=== PATIENT | male | born 1960 | race Caucasian/White ===

== ENCOUNTER → 2017-11-03 12:18 | Outpatient (CLI) | payer BC, SELFPAY ==
--- NOTE | 2017-11-03 12:21 | RAD_ITS ---
STUDY: X-RAY CHEST REASON FOR EXAM: Male, 57 years old. Cough. Chest and head congestion. TECHNIQUE: PA and lateral views of the chest. COMPARISON: Comparison is made with prior study dated October 22, 2012. FINDINGS: Hyperinflation. The lungs are clear. There is no demonstrated pleural abnormality. Normal size heart. Normal mediastinum and kishan. Normal visualized pulmonary arteries. Normal visualized aortic arch and descending thoracic aorta. There are degenerative changes of the visualized thoracic spine. Normal visualized ribs, clavicles, and shoulders. There is no demonstrated abnormality of the visualized soft tissue structures of the upper abdomen. RAD/Chest PA and Lateral IMPRESSION: Hyperinflation. The lungs are clear. Electronically Signed: Travis Gannon MD at 15:38 EST Tel [phone], Service support ,
[2017-11-03 14:22] LABS: Partial Thromboplast Time 31.7 Seconds (24.1-36.2)
[2017-11-03 14:39] LABS: Absolute Lymphocyte Count 0.73 X10^3/ul (0.83-4.51); Absolute Neutrophil Count 3.6 X10^3/uL (2.0-7.7); Basophil# 0.02 X10^3/uL; Basophil% 0.4 % (0-1); Eosinophil# 0.14 X10^3/uL; Eosinophils% 2.7 % (0-5); Hematocrit 43.1 % (40-54); Hemoglobin 14.7 g/dl (13.0-16.5); Lymphocyte # 0.73 X10^3/ul (4.0); Mean Corp Hgb Conc 34.1 g/gl (32-36); Monocyte# 0.76 X10^3/uL; Monocyte% 14.6 % (0-10); Neutrophil # 3.56 X10^3/uL (2.7-7.7); Neutrophil % 68.1 % (47-70); POSITIVE COUNT NO; POSITIVE DIFFERENTIAL NO; POSITIVE MORPHOLOGY NO; Platelet Count 173 K/mm3 (150-450); RBC Distribution Width CV 13.2 % (11.6-14.6); RBC Distribution Width SD 42.3 fl (35.1-43.9); White Blood Count 5.2 K/mm3 (4.4-11.0)
[2017-11-03 14:48] LABS: Anion Gap 8 (5-15); BUN 19 mg/dL (7-18); BUN/Creat Ratio 12.9 RATIO (10-20); Calcium,Total 9.2 mg/dL (8.5-10.1); Chloride 99 mmol/L (98-107); Creatinine, Serum 1.47 mg/dL (0.70-1.30); EST Glomerular Filtration Rate 52 mL/min (>60); Est Glom Filt Rate - Afr Amer 63 mL/min (>60); Glucose 89 mg/dL (74-106); Potassium 3.8 mmol/L (3.5-5.1); Sodium Level 136 mmol/L (136-145)
== END ==
PROVIDERS: Family Provider Family Medicine; PCP Family Medicine; Visit Provider Family Medicine
DX: Z01.818 Encounter for other preprocedural examination (principal); R05 Cough
CPT/HCPCS: 36415; 71046; 80048; 85025; 85610; 85730

== ENCOUNTER → 2018-02-03 08:13 | Outpatient (CLI) | payer BC, SELFPAY ==
--- NOTE | 2018-02-03 08:18 | VDLE_ITS ---
Reason For Study: leg swelling RIGHT GSV is normal. CFV is compressible, spontaneous, phasic, competent and demonstrates normal augmentation. FV is compressible, spontaneous, phasic, competent and demonstrates normal augmentation. POP V is compressible, spontaneous, phasic, competent and demonstrates normal augmentation. T/P Trunk is compressible. PTV is compressible. RT PerV is compressible. Procedure Exam performed in department. A preliminary report was called and/or faxed to Dr Winter. Interpretation Summary Deep veins of the right lower extremity are patent and compressible segmentally. There is no evidence of right lower extremity deep vein thrombosis. Valvular competence appears intact within the proximal deep venous system on the right . The right greater saphenous vein appears patent and compressible segmentally. Ordering Physician: Brian Winter Referring Physician: Dallas Corado Performed By: Mag Sabillon, SUNNY, RVT
== END ==
PROVIDERS: Family Provider Family Medicine; PCP Family Medicine; Visit Provider Family Medicine
DX: M79.89 Other specified soft tissue disorders (principal)
CPT/HCPCS: 93971

== ENCOUNTER → 2018-09-22 07:48 | Outpatient (CLI) | payer OTHER, SELFPAY ==
[2017-11-16 09:56] VITALS: BMI 29.9
[2018-09-22 10:42] LABS: ALB/GLOB Ratio 1.4 RATIO (0.9-2.4); AST(SGOT) 25 U/L (15-37); Alanine Aminotransfer ALT/SGPT 42 U/L (16-61); Alkaline Phosphatase 45 U/L (45-117); Anion Gap 10 (5-15); BUN 18 mg/dL (7-18); BUN/Creat Ratio 15.1 RATIO (10-20); Calcium,Total 8.7 mg/dL (8.5-10.1); Chloride 105 mmol/L (98-107); Cholesterol 220 mg/dL (200); Creatinine, Serum 1.19 mg/dL (0.70-1.30); EST Glomerular Filtration Rate 66 mL/min (>60); Est Glom Filt Rate - Afr Amer 80 mL/min (>60); Globulin 2.8 g/dL (2.2-4.2); Glucose 93 mg/dL (74-106); High Density Lipoprotein 31 mg/dL; PSA,Total - Annual Screen 0.55 ng/mL (0.00-4.00); Potassium 4.1 mmol/L (3.5-5.1); Protein, Total 6.8 g/dL (6.4-8.2); Sodium Level 140 mmol/L (136-145); Triglycerides 291 mg/dL; Very Low Density Lipoprotein 58 mg/dL (5-40)
== END ==
PROVIDERS: Family Provider Family Medicine; PCP Family Medicine; Referring Provider Family Medicine; Visit Provider Family Medicine
DX: E78.5 Hyperlipidemia, unspecified (principal); K21.9 Gastro-esophageal reflux disease without esophagitis; N40.1 Benign prostatic hyperplasia with lower urinary tract symptoms; N13.8 Other obstructive and reflux uropathy; Z12.5 Encounter for screening for malignant neoplasm of prostate
CPT/HCPCS: 36415; 80053; 80061; 84153; G0103

== ENCOUNTER → 2018-12-15 13:03 | Outpatient (CLI) | payer OTHER, SELFPAY ==
--- NOTE | 2018-12-15 13:11 | US_ITS ---
STUDY: SCROTUM ULTRASOUND REASON FOR EXAM: Male, 58 years old. Blood in semen. TECHNIQUE: Ultrasound evaluation of the scrotum was performed with color Doppler and static york-scale imaging. COMPARISON: None. FINDINGS: RIGHT TESTICLE INTRATESTICULAR: There is a normal size of the right testicle. The right testicle measures 4.2 x 3.2 x 2.2 cm. There is a homogenous echotexture. There is normal arterial and normal venous vascularity. There is no demonstrated right testicular mass or cyst. EXTRATESTICULAR: The epididymis is normal in size. The epididymis head measures 1.4 x 1.4 x 0.9 cm. There is normal vascularity of the epididymis. There is no demonstrated epididymal cystic structure. There is a small hydrocele. There is no demonstrated varicocele. There is no demonstrated extratesticular mass or cyst. Right scrotal wall thickening. LEFT TESTICLE INTRATESTICULAR: There is a normal size of the left testicle. The left testicle measures 4.5 x 2.8 x 1.9 cm. There is a homogenous echotexture. There is normal arterial and normal venous vascularity. There is no demonstrated left testicular mass or cyst. EXTRATESTICULAR: The epididymis is normal in size. The epididymis head measures 1.3 x 1.3 x 1.0 cm. There is normal vascularity of the epididymis. There is no demonstrated epididymal cystic structure. There is a small hydrocele. There is no demonstrated varicocele. There is no demonstrated extratesticular mass or cyst. Right scrotal wall thickening. US/Testicular with Arterial Flow IMPRESSION: Normal bilateral testicles. Small bilateral hydroceles. Bilateral scrotal wall thickening. Electronically Signed: Kirby Seymour MD at 7:56 EDT , Service support ,
== END ==
PROVIDERS: Family Provider Family Medicine; PCP Family Medicine; Referring Provider Family Medicine; Visit Provider Family Medicine
DX: R36.1 Hematospermia (principal)
CPT/HCPCS: 76870; 93976

== ENCOUNTER → 2019-04-04 | Outpatient (CLI) | payer OTHER, SELFPAY ==
[2017-11-16 09:56] VITALS: BMI 29.9
--- NOTE | 2019-04-04 12:03 | RAD_ITS ---
STUDY: X-RAY - PELVIS AND BILATERAL HIPS REASON FOR EXAM: Male, 58 years old. Pain, decreased range of motion TECHNIQUE: AP view of the pelvis.? 2 views of the right hip, and 2 views of the left hip were obtained. COMPARISON: None. FINDINGS: There is a non-specific bowel gas pattern. Normal visualized soft tissue structures. Normal bilateral iliac wings, sacroiliac joints and visualized sacrum. Normal bilateral superior and inferior pubic rami. Normal pubic symphysis. Normal bilateral ischial tuberosities. Normal visualized right femoral head. Normal right acetabulum. Normal right hip joint. Normal visualized left femoral head. Normal left acetabulum. Normal left hip joint. RAD/Hips B/L min 2 views w/ Pelvis IMPRESSION: Normal x-ray examination of the pelvis and bilateral hips. Electronically Signed: Justice Purdy MD at 12:36 EDT , Service support ,
--- NOTE | 2019-04-04 12:03 | RAD_ITS ---
STUDY: X-RAY - LUMBAR SPINE REASON FOR EXAM: Male, 58 years old. Low back pain TECHNIQUE: 5 view(s) of the lumbar spine were obtained. COMPARISON: None FINDINGS: Normal lumbar lordosis. There is no substantial scoliosis. There is a normal alignment of the vertebrae. There is multilevel endplate spondylosis of the lumbar vertebrae. There is multi-level degenerative disc disease with multi-level disc space narrowing. There is no demonstrated fracture. The soft tissue structures are unremarkable. RAD/L/S Spine Min 4 Views IMPRESSION: Degenerative changes of the spine, as detailed above. Electronically Signed: Justice Purdy MD at 12:32 EDT , Service support ,
== END | disposition home or self-care (01) ==
LOC: MTRAD 12:02
PROVIDERS: Family Provider Family Medicine; PCP Family Medicine; Referring Provider Family Medicine; Visit Provider Family Medicine
DX: M54.40 Lumbago with sciatica, unspecified side (principal); M25.551 Pain in right hip
CPT/HCPCS: 72110; 73521

== ENCOUNTER 2019-05-04 01:02 | Emergency (ER) | payer OTHER, SELFPAY ==
[2019-05-04 01:04] VITALS: BP 155/117; PULSE 83; RESP 17; TEMP 36.7; O2SAT 96; BMI 29.8
--- NOTE | 2019-05-04 01:17 | ED.VIS.GEN ---
History of Present Illness Chief Complaint: Back Informant: Patient Narrative: She presents with back pain. For the last 3 weeks he has had radicular symptoms originating in his left lower back. He is in physical therapy. He is tried water therapy and massage. He is seen his family doctor and had an x-ray that showed DJD. 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 He has never seen a back specialist. Recently he was placed on hydrocodone and gabapentin. His pain has waxed and waned. Tonight it got worse. He is unsure what caused the change. He was on prednisone approximately a week ago for a week and it did help. Denies any loss of bowel or bladder function. Denies any emergent warning signs including saddle paresthesia fevers or chills - Past Medical History (1) Abnormal electrocardiogram Status: Acute (2) Dyspnea Status: Acute (3) Preop cardiovascular exam Status: Acute (4) Bradycardia Status: Chronic (5) Chest tightness Status: Chronic (6) Obesity Status: Chronic Past Medical History - Allergies and Home Meds Allergies/Adverse Reactions: Allergies lansoprazole [From Prevacid] Adverse Reaction (Mild, Verified 05/04/19 01:03) Unknown ineffective erythromycin base [From Erythrocin] Adverse Reaction (Verified 05/04/19 01:03) Unknown hydrocodone Adverse Reaction (Verified 05/04/19 01:03) Rash latex Adverse Reaction (Verified 05/04/19 01:03) rash Primary Care Physician: oTmy Corado MD [Primary Care Provider] - Prior records reviewed: Yes Past Medical History: - - See problem list Surgical History: - - Reviewed Smoking Status: Never smoker Alcohol: None Drugs: None Review of Systems General: Denies: Chills, Fever, Sweats Eyes: Denies: Visual changes - bilaterally, Diplopia ENT: Denies: Rhinorrhea, Sore throat Cardiovascular: Denies: Chest pain, Palpitations Respiratory: Denies: Dyspnea, Cough, Dyspnea on exertion Gastrointestinal: Denies: Abdominal pain, Nausea, Vomiting, Diarrhea, Melena, Hematochezia Genitourinary: Denies: Dysuria, Hematuria, Frequency Musculoskeletal: Reports: Back pain, Extremity Pain Skin: Denies: Rash, Wounds Neurological: Denies: Headache, Weakness, Numbness Physical Exam Vital Signs/Narrative: Vital Signs Temp Pulse Resp BP Pulse Ox 08/23/19 01:04 98.1 F 83 17 155/117 H 96 General: Well nourished, Well developed, No Acute Distress Head: Normocephalic, Atraumatic Eyes: Perrl, EOMI ENT: Moist mucous membranes, No rhinorrhea Neck: Supple, Nontender Cardiovascular: Regular rate, Regular rhythm, No murmurs Respiratory: No distress, CTA bilaterally, Chest nontender Abdomen: Soft, Nontender, Nondistended, Normal bowel sounds Back: Normal Inspection, - - No spinal tenderness on the left. Decreased range of motion of the spine secondary to pain. Negative for: Nontender Extremities: Nontender, No edema Skin: Normal color, No rash Neurological: Alert, Oriented x3, Cranial nerves II-XII grossly intact, Normal Strength, Normal Sensation Psychological: Normal affect, Normal Mood Diagnostic/Tx/Re-eval - Medical Decision Making At this time I feel the patient has a radiculopathy likely from a pinched nerve in his back. I do not feel he has an emergent cause of his symptoms. I do not think he has a cauda equina or epidural abscess or hematoma or tumor. I do not feel he needs an emergent MRI. Given injection of Dilaudid, Kenalog Toradol and Benadryl. The Benadryl to prevent the rash that he has gotten with hydrocodone in the past she did require a total of 2-1/2 mg of Dilaudid to get his pain under control. He has pain medicine at home. He will get a delayed effect of the Kenalog. He will follow-up as an outpatient. ED Disposition - Plan for ED Patient: Disposition: Psychiatric Hospital or Unit Diagnosis: Lumbar radiculopathy, acute Instructions: BACK PAIN (Acute or Chronic) Referrals: Tomy Corado MD [Primary Care Provider] -
[2019-05-04] MEDS: DiphenhydrAMINE 50 MG/ML Syringe 25 MG IM (01:33)
[2019-05-04] MEDS: HYDROmorphone 1 MG/ML Syringe IM ×2 (01:33→02:14)
[2019-05-04] MEDS: Triamcinolone Acetonide 40 MG/ML Vial 80 MG IM (01:33)
[2019-05-04] MEDS: Ketorolac 15 MG/ML Vial IM (01:33)
[2019-05-04 02:07] VITALS: BP 147/87; PULSE 68; RESP 18; O2SAT 95
[2019-05-04 03:17] VITALS: BP 153/102; PULSE 79; RESP 18; O2SAT 95
[2019-05-04] MEDS: HYDROmorphone 0.5 MG/0.5 ML SYRINGE IM (03:20)
== END 2019-05-04 03:28 | disposition home or self-care (01) ==
PROVIDERS: Emergency Provider Emergency Medicine; Family Provider Family Medicine; PCP Family Medicine
DX: M54.16 Radiculopathy, lumbar region (principal); E66.9 Obesity, unspecified; Z79.1 Long term (current) use of non-steroidal anti-inflammatories (NSAID); Z79.899 Other long term (current) drug therapy
CPT/HCPCS: 96372; 99283

== ENCOUNTER → 2019-05-05 | Outpatient (CLI) | payer OTHER, SELFPAY ==
[2019-05-04 01:04] VITALS: BMI 29.8
--- NOTE | 2019-05-05 07:45 | MRI_ITS ---
STUDY: MRI LUMBAR SPINE WITHOUT CONTRAST REASON FOR EXAM: Male, 58 years old. Severe low back pain with bilateral hip pain. Numbness in both legs. TECHNIQUE: Standardized fat and water weighted pulse sequences were obtained in the sagittal and axial planes. COMPARISON: None FINDINGS: T12-L1: Normal endplates. Normal disc height, hydration and morphology. Normal bilateral facet joints. Normal central canal and bilateral lateral recesses. Normal bilateral intervertebral neural foramina. Normal lumbar lordosis. There is no substantial scoliosis. Normal conus medullaris that terminates at the L1/2 level. L1-2: Decreased disc space and disc desiccation is present. There is a mild broad-based disc protrusion eccentric to the right without significant spinal canal narrowing or foraminal narrowing. There is mild right lateral recess narrowing. L2-3: Disc desiccation with mild decreased disc space is present. No significant spinal canal narrowing or foraminal narrowing is noted. Incidental L3 osseous hemangioma is noted with high T1 and T2 signal. L3-4: Decreased disc space and broad-based mild disc bulge is present with noted left para foraminal disc protrusion resulting in moderate exiting nerve root on the left compression with mild to moderate right foraminal narrowing. L4-5: Decreased disc space and disc degenerative change with no significant disc bulge, spinal canal narrowing or foraminal narrowing. L5-S1: Decreased disc space with endplate degenerative changes with compounding facet arthropathy resulting in mild to moderate bilateral foraminal narrowing. Normal visualized sacral ala. Normal visualized paraspinous soft tissue structures. MRI/Spine Lumbar (Routine) IMPRESSION: 1. L3-4 broad-based disc bulge and left para foraminal disc protrusion resulting in moderate foraminal narrowing and mild to moderate right foraminal narrowing, clinically correlate for L3-4 nerve root radiculopathy. 2. L5/S1 mild to moderate bilateral foraminal narrowing, clinically correlate for L5/S1 nerve root radiculopathy. Additional degenerative changes above. Electronically Signed: Edi Walls DO at 8:34 EDT , Service support ,
== END | disposition home or self-care (01) ==
LOC: MRI 07:28
PROVIDERS: Family Provider Family Medicine; PCP Family Medicine; Referring Provider Family Medicine; Visit Provider Family Medicine
DX: M54.5 Low back pain (principal)
CPT/HCPCS: 72148

== ENCOUNTER 2019-05-30 13:30 | Outpatient (RCR) | payer OTHER, SELFPAY ==
--- NOTE | 2019-04-18 11:50 | HP.PTEVAL_ITS ---
Patient's Visit Information JOSÉ ANTONIO SOSA is a 58 year old M referred to Physical Therapy by Tomy Corado MD with a diagnosis of LBP. Date of Evaluation: 04/18/19 Physical Therapist: José Antonio Barker, JORGET, OCS, CSCS - Visit Plan Frequency: 1x/Week Duration: 4-6 Weeks Plan: pt to have water therapy at a clinic closer to his home. Will do eis 10x every two hours adn sit only with towel roll, watch posture and body mechanincs. Plan to f/u in two weeks for progression to remodelling if appropriate then strength via HEP and see how he is doing with other water therapy. Plan quad stretch, HS stretch, back ROM flexion and body mechanics then strengthening. - Subjective Findings: 1 month ago woke up with LBP and R leg pain quad insidiously. 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 Went to chiropractic as normal which helped a little. Got better and went out played [employer]. Went up on a ladder to help paint 3 weeks ago and progressively worsening. Dr. Corado put on neurontin, hydrocodone and steroid. Feeling better on meds this week. Today feeling good. He is sleeping in recliner for the last week as sleeping in bed is bothersome and wakes up bent over. Is gabriel CPAP. Has been doing some purple bands this morning which may have helped a little bit. Pain is 8/10 this week . Feels better waking but WB R leg gives severe nerve pain 8/10. Hard to stand at mirror and shave. As he moves it may relax. Sitting in office chair is rough and uncomfortable. Doing cat and cow. Doing much of work duties and is limited to office and getting in out car for visits is rough. Limtied in Home activities as standing at sink is rough and any standing too long. Avoids heavy lifting. Modifies placement off floor. carries musical instruments. Shower, bathroom can be painful but he can do them. - Pain LBP Pain Intensity (Out of 10): 3 Pain Intensity Range: 1, 8 - Objective Walks stiff but I. Trasnfers slow asnd careful bit I supine adn sit. No soft tissue tenderness in hip or LB. L/S AROM flexion painful centrally and max limited, flexion min limited, SB min limited. reflexes 2/3 patella and achilles. Sensation is WNL to gross light touch. + L/S compression. repeated eis seems to increase motion and diminish leg pain,more confidence with walking. Stands up from sitting with towel roll much better than previously. Tightness in quad R >L and positive femoral nerve tension test. R - Goals Goal 1:: Full L/S AROM ext without pain Goal Time Frame: 2-4 Weeks Goal 2:: - femoral nerve tension test. Goal Time Frame: 2-4 Weeks Goal 3:: Walk without gait deficits or difficulties. Goal Time Frame: 4-6 Weeks Goal 4:: I appropr HEp to minimize future problems Goal Time Frame: 4-6 Weeks Goal 5:: Work without limitations or pain and 90% better. Goal Time Frame: 4-6 Weeks - Rehabilitation Potential Physical Therapy Diagnosis: LBP likely discal in nature Rehabilitation Potential: Fair - Anticipated Interventions Patient/Client Instruction: Educate patient on: Condition, Plan of Care For the Purpose of:: To decrease pain, To increase ROM, To increase tolerance to activity/condition/position, To improve ability of physical actions for home/community/work/leisure Therapeutic Exercise to Include: Strength training, Flexibilty training, Gait and locomotor training, Passive ROM, Active ROM, Dynamic Lumbar Stabilization, Herminio Exercises For the Purpose of:: To decrease pain, To increase tolerance to activity/condition/position, To improve ability of physical actions for home/community/work/leisure Manual Therapy Techniques to Include: Mobilization For the Purpose of:: To increase ROM Thank you for the opportunity to evaluate your patient. For Medicare and Medicare HMO plans, please review the plan of care and approve it. It will need to be FAXED BACK to us at [phone] for Medicare purposes. For Medicare only, by signing this I certify the plan of care. Please let me know if there are questions or concerns regarding this plan of care. Physician Signature: Date:
--- NOTE | 2019-04-27 11:00 | HP.PTREVAL_ITS ---
Tomy Corado MD, It has been my pleasure to treat RICK SOSA over the last 2 visits for LBP. Please see the progress note below for an update on the physical therapy plan of care! Subjective: Not doing water elsewhere due to conflict. Did exercises multiple times per day for 4 days but then less so. [place] stress in anterior hips and may have causes some tingling in anterior legs after wards. Feels like increased leg weakness in both legs. Knelt at and hard to get up off floor. Objective/Function: walks better adn less pain after flexion. pool paerwork filled out. Plan Plan: 2x/week x 2 weeks in pool for NS, hip flexor stretch, LB flexion and rota tion ROM and core strength, gneeral postural strength. Recheck EG after. Forgot to educate patient on lockerroom so may need to get patient from waiting room. Goals Goal 1:: Full L/S AROM ext without pain Goal Time Frame: 2-4 Weeks Goal 2:: - femoral nerve tension test. Goal Time Frame: 2-4 Weeks Goal 3:: Walk without gait deficits or difficulties. Goal Time Frame: 4-6 Weeks Goal 4:: I appropr HEp to minimize future problems Goal Time Frame: 4-6 Weeks Goal 5:: Work without limitations or pain and 90% better. Goal Time Frame: 4-6 Weeks Anticipated Interventions Patient/Client Instruction: Educate patient on: Condition, Plan of Care For the Purpose of:: To decrease pain, To increase ROM, To increase tolerance to activity/condition/position, To improve ability of physical actions for home/community/work/leisure Therapeutic Exercise to Include: Strength training, Flexibilty training, Gait and locomotor training, Passive ROM, Active ROM, Dynamic Lumbar Stabilization, Herminio Exercises For the Purpose of:: To decrease pain, To increase tolerance to activity/condition/position, To improve ability of physical actions for home/community/work/leisure Manual Therapy Techniques to Include: Mobilization For the Purpose of:: To increase ROM Please do not hesitate to contact me at [phone] by phone or if you have questions or concerns regarding this new plan of care! Sincerely, Rick Barker, DPT, OCS, CSCS
--- NOTE | 2019-05-16 09:49 | HP.PTREVAL_ITS ---
Tomy Corado MD, It has been my pleasure to treat RICK SOSA over the last 6 visits for LBP. Please see the progress note below for an update on the physical therapy plan of care! Subjective: Pool really helps. Feels release of the tensiona dn relaxation of tightness which lasts a few hours. Been in there 4x/ Sitting in meeting and it tightens back up. Has exercises at home from [facility] and they help to loosen him up also. Better than he was 2 weeks ago. Using wh walker for support in LB. Nerve pain in L leg when walkking without suppport. Doing walking and SKC at home. Objective/Function: All L/S ROM movemnts today including ext, B SGIS made hime worse for pain in L anterior leg. Can not find a preferred motion today. Using walker with wheels to get around to take pressure off back which helps. L/S AROM limited ext max, flexion min and B SB min but painful L LB with R SB. Most pain in L groin area and burning down anterior upper leg. strength 4/5 in LE without increased pain or myotomal problems today. PROGRESS IS SLOW BUT DEFINITELY FEELS BETTER AFTER WATER THERAPY. WILL F/U WITH ORTHO IN TWO WEEKS Plan Plan: CONTINUE TO GET MORE AGGRESSIVE WITH ROM ADN CORE STRENGTH IN AQUATIC SETTING FOR 2 WEEKS UNTIL F/U WITH ORTHO. UNLESS SIGNIFICANT PROGRESS IS MADE, ALTERNATIVE OPTIONS SHOULD BE CONSIDERED THIS IS VERY LIMITING FOR THIS PATIENT. Goals Goal 1:: Full L/S AROM ext without pain Goal Time Frame: 2-4 Weeks Goal Progress: Not Progressing Goal 2:: - femoral nerve tension test. Goal Time Frame: 2-4 Weeks Goal Progress: Progressing Goal 3:: Walk without gait deficits or difficulties. Goal Time Frame: 4-6 Weeks Goal Progress: better with walker. Goal 4:: I appropr HEp to minimize future problems Goal Time Frame: 4-6 Weeks Goal Progress: Progressing Goal 5:: Work without limitations or pain and 90% better. Goal Time Frame: 4-6 Weeks Goal Progress: SLOW Anticipated Interventions Patient/Client Instruction: Educate patient on: Condition, Plan of Care For the Purpose of:: To decrease pain, To increase ROM, To increase tolerance to activity/condition/position, To improve ability of physical actions for home/community/work/leisure Therapeutic Exercise to Include: Strength training, Flexibilty training, Gait and locomotor training, Passive ROM, Active ROM, Dynamic Lumbar Stabilization, Herminio Exercises For the Purpose of:: To decrease pain, To increase tolerance to activity/condition/position, To improve ability of physical actions for home/community/work/leisure Manual Therapy Techniques to Include: Mobilization For the Purpose of:: To increase ROM Please do not hesitate to contact me at [phone] by phone or if you have questions or concerns regarding this new plan of care! Sincerely, Rick Barker, DPT, OCS, CSCS
--- NOTE | 2019-07-20 14:50 | HP.PTDCNRP_ITS ---
HP - Discharge Summary (1) - Patient Information RICK SOSA was seen in my office for initial evaluation on 04/18/19. The following Plan of Care was established for this patient: Initial Frequency: 1x/Week Initial Duration: 4-6 Weeks - Anticipated Interventions Patient/Client Instruction: Educate patient on: Condition, Plan of Care For the Purpose of:: To decrease pain, To increase ROM, To increase tolerance to activity/condition/position, To improve ability of physical actions for home/community/work/leisure Therapeutic Exercise to Include: Strength training, Flexibilty training, Gait and locomotor training, Passive ROM, Active ROM, Dynamic Lumbar Stabilization, Herminio Exercises For the Purpose of:: To decrease pain, To increase tolerance to a ctivity/condition/position, To improve ability of physical actions for home/community/work/leisure Manual Therapy Techniques to Include: Mobilization For the Purpose of:: To increase ROM This patient was last seen in our office 05/30/19. Pertinent comments regarding their Physical therapy will appear below: Pt seen 12 visits of aquatic therapy adn was making slow improvements with movement but not pain. He was to f/u with pain management and call regarding progress. Currently it has been over 6 weeks adn I will discontinue due to nonattendance. At this point I will be discontinuing this patient from physical therapy. I would be happy to see this patient again in the future if found appropriate by the physician. Thank you! Rick Barker, DPT, OCS, CSCS
== END 2019-05-30 19:00 | disposition home or self-care (01) ==
LOC: PT 13:30
PROVIDERS: Family Provider Family Medicine; PCP Family Medicine; Referring Provider Family Medicine; Visit Provider Family Medicine
DX: M54.5 Low back pain (principal)
CPT/HCPCS: 97113; 97162; 97530

== ENCOUNTER → 2019-06-09 | Outpatient (CLI) | payer OTHER, SELFPAY ==
[2019-06-09 11:09] LABS: ALB/GLOB Ratio 1.1 RATIO (0.9-2.4); AST(SGOT) 21 U/L (15-37); Alanine Aminotransfer ALT/SGPT 33 U/L (16-61); Albumin, Serum 3.4 g/dL (3.2-5.0); Alkaline Phosphatase 47 U/L (45-117); Anion Gap 7 (5-15); BUN 24 mg/dL (7-18); BUN/Creat Ratio 20.7 RATIO (10-20); Calcium,Total 8.6 mg/dL (8.5-10.1); Chloride 108 mmol/L (98-107); Creatinine, Serum 1.16 mg/dL (0.70-1.30); EST Glomerular Filtration Rate 68 mL/min (>60); Est Glom Filt Rate - Afr Amer 82 mL/min (>60); Glucose 83 mg/dL (74-106); Protein, Total 6.4 g/dL (6.4-8.2); Sodium Level 142 mmol/L (136-145)
[2019-06-13 03:06] LABS: Almond <0.10 kU/L (Class 0); Apple <0.10 kU/L (Class 0); Banana 0.16 kU/L (Class 0/I); Beef <0.10 kU/L (Class 0); Carrot <0.10 kU/L (Class 0); Cashew <0.10 kU/L (Class 0); Chicken <0.10 kU/L (Class 0); Egg, White <0.10 kU/L (Class 0); Egg, Whole <0.10 kU/L (Class 0); Egg, Yolk <0.10 kU/L (Class 0); Garlic <0.10 kU/L (Class 0); Gluten 0.16 kU/L (Class 0/I); Hazelnut/Filbert <0.10 kU/L (Class 0); Milk (Cow) <0.10 kU/L (Class 0); Oat <0.10 kU/L (Class 0); Onion <0.10 kU/L (Class 0); Pork <0.10 kU/L (Class 0); Potato, White <0.10 kU/L (Class 0); Rice <0.10 kU/L (Class 0); Strawberry <0.10 kU/L (Class 0); Tomato 0.22 kU/L (Class 0/I); Wheat 0.24 kU/L (Class 0/I); Yeast 1.14 kU/L (Class II)
[2019-06-13 12:53] LABS: Peanut <0.10 kU/L (Class 0); Turkey <0.10 kU/L (Class 0)
== END | disposition home or self-care (01) ==
PROVIDERS: Family Provider Family Medicine; PCP Family Medicine; Referring Provider Otolaryngology Otolaryngology/Facial Plastic Surgery; Visit Provider Otolaryngology Otolaryngology/Facial Plastic Surgery
DX: T78.40XA Allergy, unspecified, initial encounter (principal)
CPT/HCPCS: 36415; 80053; 86003

== ENCOUNTER → 2019-07-16 | Outpatient (CLI) | payer OTHER, SELFPAY ==
--- NOTE | 2019-07-16 14:33 | RAD_ITS ---
STUDY: X-RAY - ABDOMEN/PELVIS REASON FOR EXAM: Male, 58 years old. Abdominal bloating TECHNIQUE: 5 AP supine and upright views of the abdomen and pelvis. COMPARISON: None. FINDINGS: Normal visualized lung bases. There is an unremarkable bowel gas pattern. There is no demonstrated free abdominal air. A large amount of stool is present throughout the full length of the colon. Normal soft tissue structures. There are diffuse degenerative changes of the visualized lumbar spine. RAD/[employer] Decub and/or Erect IMPRESSION: A large amount of stool is present throughout the full length of the colon. Electronically Signed: Amador Cristina MD at 16:48 EST , Service support ,
== END | disposition home or self-care (01) ==
LOC: MTRAD 14:32
PROVIDERS: Family Provider Family Medicine; PCP Family Medicine; Referring Provider Internal Medicine Gastroenterology; Visit Provider Internal Medicine Gastroenterology
DX: R14.0 Abdominal distension (gaseous) (principal)
CPT/HCPCS: 74019

== ENCOUNTER → 2019-09-24 15:13 | Outpatient (CLI) | payer OTHER, SELFPAY ==
--- NOTE | 2019-09-24 11:00 | COLBX_PTH ---
PATIENT: JOSÉ ANTONIO SOSA LOC: [facility] U#:[id number] AGE/SX: 65/M ROOM: RE09/24/[address]: Dr. Bobby Oropeza MD : 1960 BED: DIS: SPEC #: [id number] RECD: 09/24/19 15:10 STATUS: PETER LANCE #: [id number] ROSANNA: 09/24/19 11:[address]: Bobby Oropeza DEPT: SURGICAL PATHOLOGY RECD BY: Shantal Charles ENTERED: 09/25/19 11:08 SP TYPE: COLON BX OT DR: Dr. Dallas Corado MD [facility] Tissues: A - Sigmoid colon biopsy B - Transverse colon Procedures: Surgery Specimen Level IV HEADER OPERATION: Colonoscopy with biopsy PRE-OP DIAGNOSIS: Bloating / constipation TISSUE SUBMITTED: A - Sigmoid polyp biopsy, rule out adenoma, B - Transverse colon polyp biopsy, rule out adenoma MICROSCOPIC DIAGNOSIS A. Sigmoid polyp, biopsy: Fragments of colonic mucosa, no pathologic diagnosis. B. Transverse colon polyp, biopsy: Tubular adenoma. SHABBIR:harjinder 09/26/19 MICROSCOPIC DESCRIPTION Slides are reviewed. GROSS DESCRIPTION A - Received in fixative is one container labeled with the patient's name and designated sigmoid. The specimen consists of two irregular fragments of light kent soft tissue that in aggregate measure 0.3 x 0.3 x 0.1 cm. The specimen is totally submitted in one cassette. B - Received in fixative is one container labeled with the patient's name and designated transverse. The specimen consists of one irregular fragment of light kent soft tissue that measures 0.4 x 0.3 x 0.1 cm. The specimen is totally submitted in one cassette. / AM:harjinder 09/25/19 TC:1 CPT: 51202 x2
== END ==
PROVIDERS: Family Provider Family Medicine; PCP Family Medicine; Referring Provider Internal Medicine Gastroenterology; Visit Provider Internal Medicine Gastroenterology
DX: K59.00 Constipation, unspecified (principal); R14.0 Abdominal distension (gaseous)
CPT/HCPCS: 88305

== ENCOUNTER → 2019-10-03 09:54 | Outpatient (CLI) | payer OTHER, SELFPAY ==
--- NOTE | 2019-10-03 09:59 | RAD_ITS ---
STUDY: X-RAY - LEFT KNEE REASON FOR EXAM: Male, 59 years old. Left knee pain. TECHNIQUE: 4 view(s) of the knee. COMPARISON: None. FINDINGS: No visible fracture. No osseous destruction. Alignment anatomic. Mild degenerative changes. Soft tissues unremarkable. RAD/Knee 4 or More Views IMPRESSION: No acute osseous abnormality. Electronically Signed: Santino Aguirre, at 7:38 EST Tel , Service support ,
--- NOTE | 2019-10-03 09:59 | RAD_ITS ---
STUDY: X-RAY - RIGHT KNEE REASON FOR EXAM: Male, 59 years old. Right knee pain. TECHNIQUE: 4 view(s) of the knee. COMPARISON: 08/24/2017 right knee radiographs. FINDINGS: No visible fracture. No osseous destruction. Alignment anatomic. Mild degenerative changes. Soft tissues unremarkable. RAD/Knee 4 or More Views IMPRESSION: No acute osseous abnormality. Electronically Signed: Santino Aguirre, at 7:40 EST Tel , Service support ,
== END ==
PROVIDERS: PCP Family Medicine; Referring Provider Nurse Practitioner Family; Visit Provider Nurse Practitioner Family
DX: M25.561 Pain in right knee (principal); M25.562 Pain in left knee
CPT/HCPCS: 73564

== ENCOUNTER → 2020-07-15 | Outpatient (CLI) | payer OTHER, SELFPAY ==
--- NOTE | 2020-07-15 14:43 | CT_ITS ---
HISTORY: RT KNEE PAIN BEKAH EXAMINATION: CT Lower Extremity W/O Contrast Injection TECHNIQUE: Helically acquired images were obtained of the right lower extremity. 2-D reformats were performed by the technologist. A radiation dose optimization technique was used for this scan. IV Contrast dosage and agent: None COMPARISON: None FINDINGS: Contiguous axial images are obtained through the right acetabulum, the right knee and the right ankle for purposes of determining version. The right femoral head is visualized within the right acetabulum. There is a small knee joint effusion Slight lateral patellar tilt. Osteophytes are seen at the patellofemoral joint. Enthesophytes of the patella. There are also marginal osteophytes seen at the medial and lateral compartments of the knee with joint space narrowing greatest at the medial compartment and subchondral sclerosis at the medial compartment. Small calcification seen posterior and inferior to the lateral malleolus may be secondary to prior trauma or nonunion of secondary ossification center. Is minimal widening of the anterior tibiofibular space CT/Extremity Lower without Contra IMPRESSION: Multiple contiguous axial images through the right hip knee and ankle for the purposes of version Degenerative changes are seen at the right knee as discussed Minimal anterior widening of the tibiotalar joint. Individualized dose optimization techniques were used for this CT. at 0623 Reported and signed by: Angelita De La O DO Electronically Signed: Angelita De La O DO at 6:22 EST Tel , Service support ,
== END | disposition home or self-care (01) ==
PROVIDERS: PCP Family Medicine; Referring Provider Physician Assistant; Visit Provider Physician Assistant
DX: M21.161 Varus deformity, not elsewhere classified, right knee (principal)
CPT/HCPCS: 73700

== ENCOUNTER → 2020-07-21 09:00 | Outpatient (CLI) | payer OTHER, SELFPAY ==
--- NOTE | 2020-07-28 14:00 | EKG12_ITS ---
Test Reason : PRE OP Blood Pressure : / mmHG Vent. Rate : 089 BPM Atrial Rate : 089 BPM P-R Int : 122 ms QRS Dur : 090 ms QT Int : 356 ms P-R-T Axes : 053 048 -30 degrees QTc Int : 433 ms Normal sinus rhythm ST & T wave abnormality, consider inferior ischemia Abnormal ECG Confirmed by WILIAN PIMENTEL, BERNARDO ([id number]), international editorial producer YON DUVAL ([id number]) on 07/29/2020 8:33:06 AM Referred By: Vince Sexton Confirmed By:BERNARDO CEDENO MD
[2020-07-28 15:01] LABS: Absolute Lymphocyte Count 0.96 X10^3/uL (0.83-4.51); Absolute Neutrophil Count 3.3 X10^3/uL (2.0-7.7); Basophil# 0.04 X10^3/uL; Basophil% 0.8 % (0-1); Eosinophils% 2.1 % (0-5); Hematocrit 39.8 % (40-54); Hemoglobin 13.7 g/dL (13.0-16.5); Lymphocyte # 0.96 X10^3/ul (4.0); Lymphocyte % 19.8 % (19-41); Mean Corp Hgb Conc 34.4 g/dL (32-36); Mean Corpuscular Hgb 30.5 pg (27.0-32.0); Mean Corpuscular Volume 88.6 fL (80-94); Mean Platelet Vol. 9.6 fl (6.2-12.0); Monocyte# 0.41 X10^3/uL; Monocyte% 8.5 % (0-10); NRBC Flagged by Analyzer 0 % (0-5); Neutrophil # 3.32 X10^3/uL (2.7-7.7); Neutrophil % 68.4 % (47-70); Platelet Count 209 K/mm3 (150-450); RBC Distribution Width CV 12.9 % (11.6-14.6); RBC Distribution Width SD 42.1 fl (35.1-43.9); Red Blood Count 4.49 M/mm3 (4.6-6.2); White Blood Count 4.9 K/mm3 (4.4-11.0)
[2020-07-28 15:35] LABS: Anion Gap 4 (5-15); BUN 15 mg/dL (7-18); Calcium,Total 9.3 mg/dL (8.5-10.1); Chloride 106 mmol/L (98-107); Creatinine, Serum 1.07 mg/dL (0.70-1.30); EST Glomerular Filtration Rate 74 mL/min (>60); Est Glom Filt Rate - Afr Amer 90 mL/min (>60); Glucose 96 mg/dL (74-106); Potassium 4.1 mmol/L (3.5-5.1); Sodium Level 140 mmol/L (136-145)
[2020-07-28 16:00] LABS: Cholesterol 245 mg/dL (200); High Density Lipoprotein 34 mg/dL; PSA,Total - Annual Screen 0.66 ng/mL (0.00-4.00); Triglycerides 532 mg/dL
[2020-07-28 18:02] LABS: AST(SGOT) 27 U/L (15-37); Alanine Aminotransfer ALT/SGPT 41 U/L (16-61); Albumin, Serum 3.9 g/dL (3.2-5.0); Alkaline Phosphatase 54 U/L (45-117); Bilirubin, Direct 0.19 mg/dL (0.00-0.30); Globulin 3.4 g/dL (2.2-4.2); Magnesium 2.2 mg/dL (1.6-2.6); Protein, Total 7.3 g/dL (6.4-8.2)
== END ==
PROVIDERS: Anesthesiology; PCP Family Medicine; Referring Provider Orthopaedic Surgery; Visit Provider Orthopaedic Surgery
DX: Z01.818 Encounter for other preprocedural examination (principal); N40.0 Benign prostatic hyperplasia without lower urinary tract symptoms; Z13.220 Encounter for screening for lipoid disorders
CPT/HCPCS: 36415; 80048; 80061; 80076; 83735; 84153; 85025; 87077; 87081; 93005; G0103

== ENCOUNTER → 2020-08-12 | Outpatient (CLI) | payer OTHER, SELFPAY | END | disposition home or self-care (01) | LOC: LABSPEC 12:10 | PROVIDERS: PCP Family Medicine; Referring Provider Family Medicine; Visit Provider Registered Nurse | DX: U07.1 COVID-19 (principal) | CPT/HCPCS: 87633; 87635; U0003 ==

== ENCOUNTER 2020-09-22 09:28 | Observation (INO) | payer OTHER, SELFPAY ==
[2020-09-15 12:48] LABS: Absolute Neutrophil Count 3.1 X10^3/uL (2.0-7.7); Basophil# 0.04 X10^3/uL; Basophil% 0.8 % (0-1); Eosinophil# 0.13 X10^3/uL; Eosinophils% 2.7 % (0-5); Hematocrit 41.2 % (40-54); Hemoglobin 13.6 g/dL (13.0-16.5); Mean Corpuscular Hgb 29.6 pg (27.0-32.0); Mean Corpuscular Volume 89.6 fL (80-94); Mean Platelet Vol. 9.5 fl (6.2-12.0); Monocyte# 0.36 X10^3/uL; Monocyte% 7.5 % (0-10); NRBC Flagged by Analyzer 0 % (0-5); Neutrophil # 3.14 X10^3/uL (2.7-7.7); Neutrophil % 65.6 % (47-70); Platelet Count 200 K/mm3 (150-450); RBC Distribution Width SD 42.5 fl (35.1-43.9); White Blood Count 4.8 K/mm3 (4.4-11.0)
[2020-09-15 13:18] LABS: Anion Gap 8 (5-15); BUN 15 mg/dL (7-18); BUN/Creat Ratio 13.4 RATIO (10-20); Calcium,Total 8.9 mg/dL (8.5-10.1); Chloride 107 mmol/L (98-107); Creatinine, Serum 1.12 mg/dL (0.70-1.30); EST Glomerular Filtration Rate 71 mL/min (>60); Est Glom Filt Rate - Afr Amer 85 mL/min (>60); Glucose 91 mg/dL (74-106); Potassium 4.1 mmol/L (3.5-5.1); Sodium Level 141 mmol/L (136-145)
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
[2020-09-22] VITALS (13 sets, daily range): BP systolic 111–142; BP diastolic 67–96; PULSE 71–88; RESP 14–18; TEMP 36.2–36.9; O2SAT 95–100; BMI 31.5
[2020-09-22] MEDS: Lactated Ringers 1,000 ML 999 ML IV (08:02)
[2020-09-22] MEDS: Gabapentin 600 MG Tablet PO (08:11)
[2020-09-22] MEDS: Scopolamine 1mg/72hr Patch 1 PATCH TD (08:11)
[2020-09-22] MEDS: Celecoxib 200 MG Capsule 400 MG PO (08:12)
[2020-09-22] MEDS: Acetaminophen 500 MG Tablet 1000 MG PO ×3 (08:12→22:02)
--- NOTE | 2020-09-22 09:00 | KNEE_PTH ---
PATIENT: JOSÉ ANTONIO SOSA LOC: [facility] U#:[id number] AGE/SX: 60/M ROOM: [facility] RE09/22/[address]: Dr. Vince Sexton DO : 1960 BED: 1 DIS: 09/23/2020 SPEC #: [id number] RECD: 09/22/20 12:34 STATUS: PETER REReuben #: [id number] ROSANNA: 09/22/20 09:[address]: Vince Sexton DEPT: SURGICAL PATHOLOGY RECD BY: Debibe Mckeon ENTERED: 09/22/20 13:01 SP TYPE: TOTAL KNEE OTHR DR: Dr. Dallas Corado MD Tissues: Knee, NOS Procedures: Decalcification bone/plaque Surgery Specimen Level IV HEADER OPERATION: ERAS, total knee replacement robotic arm assist PRE-OP DIAGNOSIS: Osteoarthritis right knee; varus deformity right knee; Sampson cyst right knee TISSUE SUBMITTED: Bone and soft tissue right knee MICROSCOPIC DIAGNOSIS Bone and soft tissue, right knee, total knee replacement/resection: Pieces of bone with degenerative osteoarthritic changes. SHABBIR:harjinder 09/25/2020 MICROSCOPIC DESCRIPTION Slides are reviewed. GROSS DESCRIPTION Received is one container designated bone and soft tissue right knee. The specimen consists of multiple fragments of kent-yellow bone measuring in aggregate 13 x 10 x 3 cm. No soft tissue is identified. A number of bony fragments contain articular surfaces consistent with tibial plateau and femoral condyle and displaying prominent osteophyte formation and bone erosion. Triple Valve Tester sections are submitted in two cassettes after decalcification. / SHABBIR:harjinder 09/22/20 TC:5 CPT: 98293, 73383
[2020-09-22] MEDS: Lactated Ringers 1,000 ML 75 ML IV (09:05)
[2020-09-22] MEDS: Cefazolin 2 GM in 0.9% Normal Saline 100 ML IV (09:18)
--- NOTE | 2020-09-22 11:01 | PCM.OPRPT ---
Report of Operation Date of Procedure: 09/22/20 Pre-Operative Diagnosis: OA right knee Post-Operative Diagnosis: same Surgery/Procedure Performed:: Right TKR engineering technologist: Amadeo Stoner Type of Anesthesia:: Spinal Anesthesiologist: Zana Mora Specimen's removed: bone Estimated Blood Loss (mL): 30 cc - Admit VTE Documentation VTE Present on Admission: No VTE Mechan Device Prophylaxis: SCD's, Thigh High JOVAN Hose VTE Pharm Prophylaxis ordered?: Yes
[2020-09-22 12:05] LABS: Hematocrit 38.4 % (40-54); Hemoglobin 13.3 g/dL (13.0-16.5); Mean Corp Hgb Conc 34.6 g/dL (32-36); Mean Corpuscular Hgb 30.3 pg (27.0-32.0); Mean Corpuscular Volume 87.5 fL (80-94); Mean Platelet Vol. 9.2 fl (6.2-12.0); Platelet Count 201 K/mm3 (150-450); RBC Distribution Width CV 12.9 % (11.6-14.6); RBC Distribution Width SD 40.9 fl (35.1-43.9); Red Blood Count 4.39 M/mm3 (4.6-6.2); White Blood Count 5.7 K/mm3 (4.4-11.0)
[2020-09-22 12:30] LABS: Anion Gap 9 (5-15); BUN 15 mg/dL (7-18); BUN/Creat Ratio 11.7 RATIO (10-20); Calcium,Total 8.4 mg/dL (8.5-10.1); Chloride 104 mmol/L (98-107); Creatinine, Serum 1.28 mg/dL (0.70-1.30); EST Glomerular Filtration Rate 61 mL/min (>60); Est Glom Filt Rate - Afr Amer 73 mL/min (>60); Estimated Creatinine Clearance 71.52 ml/min; Glucose 164 mg/dL (74-106); Potassium 4.2 mmol/L (3.5-5.1); Sodium Level 138 mmol/L (136-145)
[2020-09-22] MEDS: 0.9% Normal Saline 1,000 ML 75 ML IV (15:32)
[2020-09-22] MEDS: Cefazolin 1 GM/50 ML BAG IV (16:30)
[2020-09-22] MEDS: Aspirin 81 MG TAB.CHEW PO (16:33)
--- NOTE | 2020-09-22 16:48 | CHAPLAIN ---
Type of Pastoral Visit _x__ Initial Visit ___ Follow-up Visit ___ On-call Visit ___ General Patient Visit ___ Spiritual Assessment ___ Family Conference ___ Bereavement ___ Rapid Response ___ Code Blue ___ Other (describe below) Pastoral Care Referral From _x__ Patient ___ Family ___ Nurse ___ Physician ___ Reel Film Inspector ___ Older Adult Social Work Specialist ___ Other (describe below) Sacrament/Intervention _x__ Active listening ___ Anointing ___ Presybeterian ___ Bereavement ___ Communion _x__ Zayda exploration ___ _x__ Life review _x__ Prayer ___ Reconciliation ___ Sacrament of Sick _x__ Supportive presence ___ Wedding ___ Other (describe below) Pastoral Comments
[2020-09-22] MEDS: Tamsulosin HCl 0.4 MG Capsule PO (22:02)
[2020-09-22] MEDS: Senna/Docusate Sodium 1 Tablet 2 TABLET PO (22:02)
[2020-09-23 00:36] VITALS: BP 117/68; PULSE 84; RESP 16; TEMP 36.6; O2SAT 96
[2020-09-23] MEDS: Cefazolin 1 GM/50 ML BAG IV (00:43)
[2020-09-23 05:19] VITALS: BP 116/61; PULSE 75; RESP 16; TEMP 36.6; O2SAT 97
[2020-09-23] MEDS: Acetaminophen 500 MG Tablet 1000 MG PO ×2 (05:23→13:01)
[2020-09-23 05:56] LABS: Hemoglobin 12.6 g/dL (13.0-16.5); Mean Corp Hgb Conc 34.1 g/dL (32-36); Mean Corpuscular Volume 88.1 fL (80-94); Mean Platelet Vol. 9.2 fl (6.2-12.0); Platelet Count 203 K/mm3 (150-450); RBC Distribution Width CV 12.9 % (11.6-14.6); RBC Distribution Width SD 41.9 fl (35.1-43.9); White Blood Count 13.3 K/mm3 (4.4-11.0)
[2020-09-23 06:27] LABS: Anion Gap 7 (5-15); BUN 19 mg/dL (7-18); Calcium,Total 8.8 mg/dL (8.5-10.1); Chloride 107 mmol/L (98-107); Creatinine, Serum 1.27 mg/dL (0.70-1.30); EST Glomerular Filtration Rate 61 mL/min (>60); Est Glom Filt Rate - Afr Amer 74 mL/min (>60); Estimated Creatinine Clearance 72.08 ml/min; Glucose 115 mg/dL (74-106); Potassium 4.3 mmol/L (3.5-5.1); Sodium Level 138 mmol/L (136-145)
--- NOTE | 2020-09-23 08:02 | PCM.PN.ORT ---
Subjective: Patient sitting at bedside eating breakfast. Patient states pain is been very well managed. Patient has no complaints at this time. Patient denies chest pain, shortness of breath, calf pain, nausea vomiting. Patient states he is ready for discharge home. Objective: Dressings clean dry intact. Negative signs or symptoms of DVT. Vital signs labs were all reviewed noted in the medical record. Patient is afebrile. Patient is no respiratory distress, speaking in full sentences. Neurovascular is otherwise intact. - Physical Exam Vitals/I&O's: Vital Signs Temp Pulse Resp BP Pulse Ox 97.8 F 75 16 116/61 97 09/23/20 05:19 09/23/20 05:19 09/23/20 05:19 09/23/20 05:19 09/23/20 05:19 Oxygen Flow Rate (L/min) 6 Oxygen Delivery Method Room Air Weight: 114.4 kg Body Mass Index (BMI) 31.5 Intake and Output for Last 24 Hours 09/21/20 09/22/20 09/23/20 23:59 23:59 23:59 Intake Total 2479.5 / 2479.5 854.25 / 854.25 Output Total 950 / 950 Balance 2479.5 / 2479.5 -95.75 / -95.75 General: Alert, Oriented x3, Cooperative HEENT: PERRLA Oral: Moist Mucosa Neurological: Cranial nerves II-XII grossly intact Psych/Mental Status: Normal Affect, Alert and oriented to time, place, person, mood and affect Microbiology Past 72 Hours 09/18/20 13:45 Swab (Method) Nasal Screen MRSA/MSSA - Final Laboratory Results 09/22/20 11:55: WBC 5.7, RBC 4.39 L, Hgb 13.3, Hct 38.4 L, MCV 87.5, MCH 30.3, MCHC 34.6, RDW Std Deviation 40.9, RDW Coeff of Tricia 12.9, Plt Count 201, MPV 9.2 09/22/20 11:55: Sodium 138, Potassium 4.2, Chloride 104, Carbon Dioxide 25.0, Anion Gap 9, BUN 15, Creatinine 1.28, Estim Creat Clear Calc 71.52, Est GFR (MDRD) Af Amer 73, Est GFR (MDRD) Non-Af 61, BUN/Creatinine Ratio 11.7, Glucose 164 H, Calcium 8.4 L 09/23/20 05:50: WBC 13.3 H, RBC 4.20 L, Hgb 12.6 L, Hct 37.0 L, MCV 88.1, MCH 30.0, MCHC 34.1, RDW Std Deviation 41.9, RDW Coeff of Tricia 12.9, Plt Count 203, MPV 9.2 09/23/20 05:50: Sodium 138, Potassium 4.3, Chloride 107, Carbon Dioxide 24.0, Anion Gap 7, BUN 19 H, Creatinine 1.27, Estim Creat Clear Calc 72.08, Est GFR (MDRD) Af Amer 74, Est GFR (MDRD) Non-Af 61, BUN/Creatinine Ratio 15.0, Glucose 115 H, Calcium 8.8 Current Medications Acetaminophen (Acetaminophen 500 Mg Tablet) 1,000 mg PO Q8 [facility] Last Admin: 09/23/20 05:23 Dose: 1,000 mg Documented by: Ascorbic Acid (Ascorbic Acid 500 Mg Tablet) [facility] Aspirin (Aspirin 81 Mg Tab.Chew) 81 mg PO BIDCM [facility] Last Admin: 09/22/20 16:33 Dose: 81 mg Documented by: Fluticasone Propionate (Fluticasone 0.05% 1 [place] Nasal.Sry) 2 spray NASAL DAILY [facility] Last Admin: 09/22/20 14:14 Dose: Not Given Documented by: Sodium Chloride () 250 mls @ 15 mls/hr IV .[id number] PRN PRN Reason: Saline Flush Sodium Chloride () 250 mls @ 15 mls/hr IV .[id number] PRN PRN Reason: Additional IVPB Infusion Multivitamins (Multivitamins,Therapeutic Tablet) 1 tablet PO DAILY@0800 [facility] Ondansetron HCl (Ondansetron 4 Mg/2 Ml Vial) 4 mg IV Q8H PRN PRN PRN Reason: NAUSEA Oxycodone HCl (Oxycodone 5 Mg Tablet) 5 - 10 mg PO Q4H PRN PRN PRN Reason: Pain Score 4-10 Pantoprazole Sodium (Pantoprazole Sodium 40 Mg Tablet) 40 mg PO DAILY [facility] Polyethylene Glycol (Polyethylene Glycol 3350 17 Gm Packet) 17 gm PO DAILY [facility] Last Admin: 09/22/20 14:14 Dose: Not Given Documented by: Promethazine HCl (Promethazine 25 Mg/Ml Syringe) 12.5 mg IM Q6H PRN PRN; Protocol PRN Reason: NAUSEA/VOMITING Senna/Docusate Sodium (Senna/Docusate Sodium 1 Tablet) 2 tablet PO BID [facility] Last Admin: 09/22/20 22:02 Dose: 2 tablet Documented by: Sodium Chloride (0.9% Nacl Peripheral Flush Adult/Peds) 5 - 15 ml IV UD PRN PRN Reason: SALINE FLUSH Sodium Chloride (0.9% Saline Lock 10 Ml Syringe) 10 - 40 ml IV UD PRN PRN Reason: SALINE FLUSH Tamsulosin HCl (Tamsulosin Hcl 0.4 Mg Capsule) 0.4 mg PO QHS [facility] Last Admin: 09/22/20 22:02 Dose: 0.4 mg Documented by: Medical Necessity - Tobacco Use Smoking Status: Never smoker Tobacco Use: Non-smoker Assessment/Plan All Active Problems (Last Reviewed 11/16/17 @ 10:[address] Marino Sierra MD) Dyspnea (Acute) Status post right total knee arthroplasty Plan 1. Continue all pain medications as prescribed 2. Continue physical therapy, weight-bear as tolerated with walker 3. Aspirin 81 mg 1 p.o. every 12 hours x30 days for postop DVT prophylaxis 4. Encourage incentive spirometry 5. Per Dr. Sexton patient will be placed on Singulair 10 mg 1 p.o. daily 6. Discharge home today 7. Patient will continue physical therapy outpatient at [facility] [place]
--- NOTE | 2020-09-23 08:17 | DCINST_ITS ---
Discharge Diet: No Restrictions Discharge Activity: May Not Drive, May Shower, Use Walker May shower in (days): 3 Ice area for (Minutes): 20 - each hour while awake. Weight Bearing Status: Weight bearing as tolerated Elevate: Operative Extremity Additional Activity Instructions:: Wear elastic stockings for 2 weeks after your surgery. Call your doctor if your incision/area has: Continuous Slow Oozing, Sudden Increased Bleeding, Increased Pain/ Swelling, Increased Redness, Foul Smelling Discharge Call your doctor if you observe: Fever of 101 or Higher, Coldness, Increased Pain - in extremity, Numbness or Tingling, Change in Color, Calf discomfort, Uncontrolled pain Change Dressing in (Days):: 1 - and daily as needed. Cleanse incision/area with: Soap & Water Allergies/Adverse Reactions: Allergies mold Allergy (Verified 09/22/20 07:42) Laryngospasms tramadol Allergy (Verified 09/22/20 07:42) Itching lansoprazole [From Prevacid] Adverse Reaction (Mild, Verified 09/22/20 07:42) Unknown ineffective erythromycin base [From Erythrocin] Adverse Reaction (Verified 09/22/20 07:42) Unknown hydrocodone Adverse Reaction (Verified 09/22/20 07:42) Rash latex Adverse Reaction (Verified 09/22/20 07:42) rash Medications to take at Discharge Esomeprazole Magnesium 40 mg PO DAILY 05/04/19 Tamsulosin HCl 0.4 mg PO QHS 05/04/19 Ibuprofen 3 tab PO PRN PRN 07/21/20 Polyethylene Glycol 3350 [Miralax] 17 gm PO DAILY 07/21/20 Triamcinolone Acetonide [Nasacort] 2 spray NS DAILY 07/21/20 Ascorbic Acid [Vitamin C] 1,000 mg PO DAILY 09/09/20 Multivitamin 1 ea PO DAILY 09/09/20 Acetaminophen [Tylenol] 1,000 mg PO Q8 #90 tab 09/23/20 Aspirin [Aspirin, Baby] 81 mg PO BIDCM #60 tab.chew 09/23/20 Montelukast Sodium [Singulair] 10 mg PO DAILY #30 tab 09/23/20 Oxycodone [Oxyir] 5 - 10 mg PO Q4H PRN PRN #56 tab 09/23/20 Senna/Docusate Sodium [Senokot-S] 2 tab PO BID tab 09/23/20 The following prescriptions were given: Aspirin [Aspirin, Baby] 81 mg PO BIDCM #60 tab.chew Transmission Status: Pending to [facility] Oxycodone [Oxyir] 5 - 10 mg PO Q4H PRN PRN #56 tab PRN Reason: Pain Score 4-10 Prescription Printed Montelukast Sodium [Singulair] 10 mg PO DAILY #30 tab Transmission Status: Pending to [facility] Acetaminophen [Tylenol] 1,000 mg PO Q8 #90 tab Transmission Status: Pending to [facility] Primary Care Physician: Tomy Corado MD [Primary Care Provider] - Test Results: Test results from this visit will be discussed in further detail at your follow- up appointment, if applicable. Please Follow Up With: Vince Sexton, DO When: as scheduled (see pink sheet)
[2020-09-23] MEDS: Senna/Docusate Sodium 1 Tablet 2 TABLET PO (08:28)
[2020-09-23] MEDS: Ascorbic Acid 500 MG Tablet 1000 MG PO (08:28)
[2020-09-23] MEDS: Multivitamins,Therapeutic Tablet 1 TABLET PO (08:29)
[2020-09-23] MEDS: Fluticasone 0.05% 1 SPRAY NASAL.SRY 2 SPRAY NASAL (08:29)
[2020-09-23] MEDS: Aspirin 81 MG TAB.CHEW PO (08:29)
[2020-09-23] MEDS: Polyethylene Glycol 3350 17 GM PACKET PO (08:29)
[2020-09-23] MEDS: Pantoprazole Sodium 40 MG Tablet PO (08:29)
[2020-09-23] MEDS: oxyCODONE 5 MG Tablet PO ×2 (08:29→13:01)
--- NOTE | 2020-09-23 08:36 | PCS.PANDOC ---
PANDEMIC DOCUMENTATION INITIATED: Date: 08/18/2020 Time:
[2020-09-23 10:28] VITALS: BP 122/68; PULSE 78; RESP 16; TEMP 36.7; O2SAT 94
[2020-09-23 11:00] LABS: Bedside Glucose 95 mg/dL (70-110)
--- NOTE | 2020-09-23 12:15 | CASEMGMT ---
RN CM CARD TABLE ATTENDANT CM to room to meet with patient for initial transition planning/care coordination assessment. NOAH MAIER introduced self and role at [facility]. Pt voices understanding and consents to assessment at this time. Pt resting in bed in no distress at this time. Pt is A/O at this time and answers all questions appropriately. Care providers, pharmacy, and demographics verified/updated at this time. PCP: Dr Corado Specialists: Dr Sexton-ortho, Dr Reina--pulmonology, Dr Ornelas--dermatology Preferred Pharmacy: [facility] Insurance: MMO Prescription Benefit: none Living Will/HPOA: States does not have LW or HCPOA . Interested in more information and would like to talk with SW to complete paperwork. SW, Bambi Lau, made aware. LNOK: , Jaimie. Living Arrangements: Lives w/his in 2 story home w/5 steps to enter. Bedroom is on 2nd floor, but can sleep on main floor if needed. Independent w/ADL's and IADL's prior to surgery. 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 Transportation: Pt states drives self and states no transportation concerns at this time. will take him home @ d/c DME: States has the following DME: raised toilet seat, rails by commode, walker, CPAP. PT eval has been completed and they recommended cane, grab bars, and citrus fruit packer and have provided info on this for pt. He denies need for other DME HHC/SNF: No history of either. Pt wishes to discharge home w/OP therapy @ [facility]. Pt is aware of appts that have been scheduled. Pt wishes to return home and states has no concerns with going home at time of discharge. CM to follow for any further discharge planning/needs. Pt voices no further concerns/needs at this time. Advised pt to ask for CM if any further questions/concerns/needs arise. Voices understanding. PLAN: Home w/spousal support and OP therapy. Lola HERNANDEZ RN, CM
--- NOTE | 2020-09-23 14:03 | CASEMGMT ---
SW met w/pt in room in regard to completing LW/POA forms. Pt did not want to complete the forms at this time, but did want the blank forms. SW reviewed the forms w/pt, and provided blank forms to him. No further needs from SW. KIAN Maldonado
== END 2020-09-23 14:20 | disposition home or self-care (01) ==
LOC: SDC 09:35 → MS3 09:35
PROVIDERS: Admitting Provider Orthopaedic Surgery; PCP Family Medicine; Referring Provider Orthopaedic Surgery; Visit Provider Orthopaedic Surgery
PROC: 0SRC0JZ Replacement of Right Knee Joint with Synthetic Substitute, Open Approach (ICD-10-PCS; CPT 27447; principal; 2020-09-22 08:30)
DX: M17.31 Unilateral post-traumatic osteoarthritis, right knee (principal); G47.30 Sleep apnea, unspecified; N40.0 Benign prostatic hyperplasia without lower urinary tract symptoms; K21.9 Gastro-esophageal reflux disease without esophagitis; Z79.899 Other long term (current) drug therapy; Z86.19 Personal history of other infectious and parasitic diseases; Z87.891 Personal history of nicotine dependence; M21.161 Varus deformity, not elsewhere classified, right knee; M71.21 Synovial cyst of popliteal space [Baker], right knee
CPT/HCPCS: 01400; 27447; 64447; S2900; 36415; 80048; 82962; 85025; 85027; 87077; 87081; 88305; 88311; 96361; 96365; 96366; 97110; 97116; 97162; 97166; 97530; 99218; 99251; C1776; J7030; J7120; G0378; G0379; G0463; J2405

== ENCOUNTER → 2021-03-18 10:18 | Outpatient (CLI) | payer OTHER, SELFPAY ==
[2020-09-22 13:50] VITALS: BMI 31.5
[2021-03-18 11:45] LABS: Absolute Lymphocyte Count 1.16 X10^3/uL (0.83-4.51); Absolute Neutrophil Count 3.5 X10^3/uL (2.0-7.7); Basophil# 0.03 X10^3/uL; Basophil% 0.6 % (0-1); Eosinophil# 0.18 X10^3/uL; Eosinophils% 3.3 % (0-5); Hematocrit 39.3 % (40-54); Lymphocyte # 1.16 X10^3/ul (0.83-4.51); Lymphocyte % 21.5 % (19-41); Mean Corp Hgb Conc 33.1 g/dL (32-36); Mean Corpuscular Volume 87.5 fL (80-94); Mean Platelet Vol. 9.7 fl (6.2-12.0); Monocyte# 0.45 X10^3/uL; Monocyte% 8.3 % (0-10); NRBC Flagged by Analyzer 0 % (0-5); Neutrophil # 3.54 X10^3/uL (2.7-7.7); Neutrophil % 65.7 % (47-70); Platelet Count 199 K/mm3 (150-450); RBC Distribution Width CV 12.9 % (11.6-14.6); Red Blood Count 4.49 M/mm3 (4.6-6.2); White Blood Count 5.4 K/mm3 (4.4-11.0)
[2021-03-18 12:28] LABS: Ferritin 153 ng/mL (26-388)
== END ==
PROVIDERS: PCP Family Medicine
DX: D64.9 Anemia, unspecified (principal)
CPT/HCPCS: 36415; 82728; 85025

== ENCOUNTER → 2021-03-20 11:51 | Outpatient (CLI) | payer OTHER, SELFPAY ==
[2020-09-22 13:50] VITALS: BMI 31.5
[2021-03-20 11:54] LABS: Lyme Ab Screen Interpretation REF LAB
[2021-03-20 15:52] LABS: Absolute Lymphocyte Count 1.15 X10^3/uL (0.83-4.51); Absolute Neutrophil Count 3.4 X10^3/uL (2.0-7.7); Basophil# 0.04 X10^3/uL; Basophil% 0.8 % (0-1); Eosinophil# 0.14 X10^3/uL; Eosinophils% 2.7 % (0-5); Hematocrit 40.5 % (40-54); Hemoglobin 13.4 g/dL (13.0-16.5); Lymphocyte # 1.15 X10^3/ul (0.83-4.51); Lymphocyte % 22.4 % (19-41); Mean Corp Hgb Conc 33.1 g/dL (32-36); Mean Corpuscular Hgb 29.2 pg (27.0-32.0); Mean Corpuscular Volume 88.2 fL (80-94); Mean Platelet Vol. 9.7 fl (6.2-12.0); Monocyte# 0.33 X10^3/uL; Monocyte% 6.4 % (0-10); NRBC Flagged by Analyzer 0 % (0-5); Neutrophil # 3.44 X10^3/uL (2.7-7.7); Neutrophil % 67.1 % (47-70); Platelet Count 204 K/mm3 (150-450); RBC Distribution Width CV 12.9 % (11.6-14.6); RBC Distribution Width SD 41.4 fl (35.1-43.9); RET-HE 35.4 pg (30-35); Red Blood Count 4.59 M/mm3 (4.6-6.2); Reticulocyte Count 1.63 % (0.5-1.5); White Blood Count 5.1 K/mm3 (4.4-11.0)
[2021-03-20 16:16] LABS: Erythrocyte Sedimentation Rate 7 mm/hr (0-20)
[2021-03-20 16:48] LABS: Hepatitis C Antibody Non-Reactive (Nonreactive); Vitamin B12 1112 pg/mL (211-911)
[2021-03-20 17:04] LABS: ALB/GLOB Ratio 1.1 RATIO (0.9-2.4); AST(SGOT) 22 U/L (15-37); Alanine Aminotransfer ALT/SGPT 42 U/L (16-61); Albumin, Serum 3.8 g/dL (3.2-5.0); Alkaline Phosphatase 40 U/L (45-117); Anion Gap 8 (5-15); BUN 16 mg/dL (7-18); BUN/Creat Ratio 14.8 RATIO (10-20); Calcium,Total 8.9 mg/dL (8.5-10.1); Chloride 105 mmol/L (98-107); Creatinine, Serum 1.08 mg/dL (0.70-1.30); EST Glomerular Filtration Rate 74 mL/min (>60); Est Glom Filt Rate - Afr Amer 89 mL/min (>60); Globulin 3.4 g/dL (2.2-4.2); Glucose 82 mg/dL (74-106); Iron 72 ug/dL (65-175); Iron Binding Capacity,Total 326 ug/dL (250-450); Potassium 3.9 mmol/L (3.5-5.1); Protein, Total 7.2 g/dL (6.4-8.2); Sodium Level 139 mmol/L (136-145); Thyroid Stim Hormone (TSH) 1.21 uIU/mL (0.358-3.74)
[2021-03-22 16:44] LABS: ANTINUCLEAR ANTIBODIES DIRECT Negative (Negative)
[2021-03-26 03:06] LABS: Hepatitis B Core Ab Total Negative (Negative); Hepatitis Be Ab Negative (Negative); Hepatitis Be Ag Negative (Negative); Immunoglobulin E 88 IU/mL (6-495)
[2021-03-26 12:00] LABS: Hepatitis A AB, Total Negative (Negative); Lyme Scn Total Ab w/Rflx <0.91 ISR (0.00-0.90)
== END ==
PROVIDERS: PCP Family Medicine; Visit Provider Family Medicine
DX: E83.119 Hemochromatosis, unspecified (principal); R53.83 Other fatigue; Z86.19 Personal history of other infectious and parasitic diseases
CPT/HCPCS: 36415; 80053; 82607; 82746; 82785; 83540; 83550; 84443; 85025; 85045; 85652; 86038; 86618; 86704; 86707; 86708; 86803; 87350

== ENCOUNTER → 2021-03-26 15:26 | Outpatient (CLI) | payer OTHER, SELFPAY ==
[2020-09-22 13:50] VITALS: BMI 31.5
--- NOTE | 2021-03-26 15:50 | RAD_ITS ---
History: OTHER PRURITUS EXAMINATION/TECHNIQUE: XR Chest 2 Views: COMPARISON: November 03, 2017 FINDINGS: LINES/DEVICES: None. LUNGS: No consolidation, edema or effusion. No pneumothorax. MEDIASTINUM AND CARDIOVASCULAR STRUCTURES: Cardiac silhouette not enlarged. Central airways and mediastinal contour are unremarkable. BONES AND SOFT TISSUES: Unremarkable. RAD/Chest PA and Lateral IMPRESSION: No radiographic evidence of acute cardiopulmonary disease. at 1702 Reported and signed by: Loy Pablo MD Electronically Signed: Loy Pablo MD at 17:01 EDT Tel , Service support ,
[2021-03-26 16:18] LABS: Absolute Lymphocyte Count 2.05 X10^3/uL (0.83-4.51); Absolute Neutrophil Count 5.2 X10^3/uL (2.0-7.7); Basophil# 0.03 X10^3/uL; Basophil% 0.4 % (0-1); Eosinophil# 0.03 X10^3/uL; Eosinophils% 0.4 % (0-5); Hematocrit 38.3 % (40-54); Hemoglobin 12.8 g/dL (13.0-16.5); Lymphocyte # 2.05 X10^3/ul (0.83-4.51); Lymphocyte % 25.7 % (19-41); Mean Corp Hgb Conc 33.4 g/dL (32-36); Mean Corpuscular Hgb 29.4 pg (27.0-32.0); Mean Platelet Vol. 9.4 fl (6.2-12.0); Monocyte# 0.58 X10^3/uL; Monocyte% 7.3 % (0-10); NRBC Flagged by Analyzer 0 % (0-5); Neutrophil # 5.18 X10^3/uL (2.7-7.7); Neutrophil % 64.9 % (47-70); Platelet Count 202 K/mm3 (150-450); RBC Distribution Width CV 13.2 % (11.6-14.6); RBC Distribution Width SD 42.5 fl (35.1-43.9); Red Blood Count 4.35 M/mm3 (4.6-6.2)
[2021-03-26 16:46] LABS: AST(SGOT) 17 U/L (15-37); Alanine Aminotransfer ALT/SGPT 34 U/L (16-61); Albumin, Serum 3.6 g/dL (3.2-5.0); Alkaline Phosphatase 56 U/L (45-117); Anion Gap 8 (5-15); BUN 19 mg/dL (7-18); BUN/Creat Ratio 15.8 RATIO (10-20); Bilirubin, Direct 0.21 mg/dL (0.00-0.30); Calcium,Total 8.3 mg/dL (8.5-10.1); Chloride 104 mmol/L (98-107); EST Glomerular Filtration Rate 65 mL/min (>60); Est Glom Filt Rate - Afr Amer 79 mL/min (>60); Glucose 99 mg/dL (74-106); Potassium 3.7 mmol/L (3.5-5.1); Protein, Total 6.6 g/dL (6.4-8.2); Sodium Level 140 mmol/L (136-145); T4 Free Direct 0.89 ng/dL (0.76-1.46); Thyroid Stim Hormone (TSH) 1.98 uIU/mL (0.358-3.74)
[2021-03-31 14:13] LABS: Albumin 3.7 g/dL (2.9-4.4); Albumin, Ur 12.4 % (.); Alpha-1-Globulin, Ur 0 % (.); Alpha-1-Globulins 0.2 g/dL (0.0-0.4); Alpha-2-Globulins 0.6 g/dL (0.4-1.0); Alpha-2-Globulins, Ur 2.7 % (.); Beta Globulin, Ur 20.7 % (.); Gamma Globulin 0.9 g/dL (0.4-1.8); Gamma Globulin, Ur 64.2 % (.); Immunoglobulin A 231 mg/dL (61-437); Immunoglobulin G 863 mg/dL (603-1613); Immunoglobulin M 103 mg/dL (20-172); M-Spike, Ur % Not Observed % (Not Observed); PROEL- TOTAL PROTEIN 6.4 g/dL (6.0-8.5); Total Protein, Ur 6.6 mg/dL (Not Estab.)
[2021-03-31 16:37] LABS: Deamidated Gliadin IgA 4 units (0-19); Deamidated Gliadin IgG 1 units (0-19)
== END ==
PROVIDERS: PCP Family Medicine; Referring Provider Dermatology; Visit Provider Dermatology
DX: L29.8 Other pruritus (principal)
CPT/HCPCS: 36415; 71046; 80048; 80076; 82784; 83516; 84165; 84166; 84439; 84443; 85025; 86038; 86334; 86335

== ENCOUNTER → 2021-06-25 09:24 | Outpatient (CLI) | payer OTHER, SELFPAY ==
[2021-06-25 10:37] LABS: Mean Corp Hgb Conc 34.2 g/dL (32-36); Mean Corpuscular Volume 87.8 fL (80-94); Mean Platelet Vol. 9.6 fl (6.2-12.0); Platelet Count 185 K/mm3 (150-450); RBC Distribution Width CV 12.7 % (11.6-14.6); RBC Distribution Width SD 41.1 fl (35.1-43.9); Red Blood Count 4.33 M/mm3 (4.6-6.2); White Blood Count 4.4 K/mm3 (4.4-11.0)
[2021-06-25 11:12] LABS: Cholesterol 206 mg/dL (200); Ferritin 172 ng/mL (26-388); High Density Lipoprotein 34 mg/dL; PSA,Total - Annual Screen 0.72 ng/mL (0.00-4.00); Triglycerides 231 mg/dL; Very Low Density Lipoprotein 46 mg/dL (5-40)
== END ==
PROVIDERS: PCP Family Medicine; Referring Provider Family Medicine; Visit Provider Family Medicine
DX: E83.119 Hemochromatosis, unspecified (principal); E78.5 Hyperlipidemia, unspecified; N40.0 Benign prostatic hyperplasia without lower urinary tract symptoms; Z12.5 Encounter for screening for malignant neoplasm of prostate
CPT/HCPCS: 36415; 80061; 82728; 84153; 85027; G0103

== ENCOUNTER → 2022-04-14 | Outpatient (CLI) | payer OTHER, SELFPAY ==
[2022-04-14 12:09] LABS: Erythrocyte Sedimentation Rate 8 mm/hr (0-20)
[2022-04-14 12:11] LABS: Absolute Lymphocyte Count 1.37 X10^3/uL (0.83-4.51); Absolute Neutrophil Count 4.4 X10^3/uL (2.0-7.7); Basophil# 0.04 X10^3/uL; Basophil% 0.6 % (0-1); Eosinophils% 1.6 % (0-5); Hematocrit 40.2 % (40-54); Hemoglobin 14.1 g/dL (13.0-16.5); Lymphocyte # 1.37 X10^3/ul (0.83-4.51); Lymphocyte % 21.3 % (19-41); Mean Corp Hgb Conc 35.1 g/dL (32-36); Mean Corpuscular Hgb 30.4 pg (27.0-32.0); Mean Corpuscular Volume 86.6 fL (80-94); Mean Platelet Vol. 9.1 fl (6.2-12.0); Monocyte# 0.53 X10^3/uL; Monocyte% 8.2 % (0-10); NRBC Flagged by Analyzer 0 % (0-5); Neutrophil # 4.36 X10^3/uL (2.7-7.7); Neutrophil % 67.8 % (47-70); Platelet Count 189 K/mm3 (150-450); RBC Distribution Width CV 12.7 % (11.6-14.6); RBC Distribution Width SD 39.9 fl (35.1-43.9); Red Blood Count 4.64 M/mm3 (4.6-6.2); White Blood Count 6.4 K/mm3 (4.4-11.0)
[2022-04-14 12:40] LABS: CRP < 2.90 mg/L (0.0-3.0)
== END | disposition home or self-care (01) ==
LOC: LAB 11:44
PROVIDERS: PCP Family Medicine; Referring Provider Physician Assistant; Visit Provider Physician Assistant
DX: Z96.651 Presence of right artificial knee joint (principal)
CPT/HCPCS: 36415; 85025; 85652; 86140

== ENCOUNTER → 2022-10-18 | Outpatient (CLI) | payer BC, SELFPAY ==
[2022-10-18 12:40] LABS: Vitamin D,25 Hydroxy 75.2 ng/mL
[2022-10-18 13:00] LABS: ALB/GLOB Ratio 1.2 RATIO (0.9-2.4); AST(SGOT) 34 U/L (15-37); Alanine Aminotransfer ALT/SGPT 42 U/L (16-61); Alkaline Phosphatase 45 U/L (45-117); Anion Gap 6 (5-15); BUN 19 mg/dL (7-18); Calcium,Total 9.2 mg/dL (8.5-10.1); Chloride 109 mmol/L (98-107); Cholesterol 221 mg/dL (200); Creatinine, Serum 1.12 mg/dL (0.70-1.30); EST Glomerular Filtration Rate 70 mL/min (>60); Est Glom Filt Rate - Afr Amer 85 mL/min (>60); Globulin 3.2 g/dL (2.2-4.2); Glucose 95 mg/dL (74-106); High Density Lipoprotein 39 mg/dL; PSA,Total - Annual Screen 0.58 ng/mL (0.00-4.00); Potassium 3.9 mmol/L (3.5-5.1); Protein, Total 7.2 g/dL (6.4-8.2); Sodium Level 141 mmol/L (136-145); Triglycerides 261 mg/dL; Very Low Density Lipoprotein 52 mg/dL (5-40)
[2022-10-18 13:09] LABS: Hemoglobin A1c 5.2 % (3.8-5.6)
== END | disposition home or self-care (01) ==
LOC: MFPLAB 10:35
PROVIDERS: PCP Family Medicine; Referring Provider Family Medicine; Visit Provider Family Medicine
DX: Z00.00 Encounter for general adult medical examination without abnormal findings (principal); E55.9 Vitamin D deficiency, unspecified; Z12.5 Encounter for screening for malignant neoplasm of prostate
CPT/HCPCS: 36415; 80053; 80061; 82306; 83036; 84153; G0103

== ENCOUNTER → 2023-01-06 | Outpatient (CLI) | payer BC, SELFPAY ==
[2023-01-06 08:17] LABS: Erythrocyte Sedimentation Rate 3 mm/hr (0-20)
[2023-01-06 08:19] LABS: Absolute Lymphocyte Count 1.08 X10^3/uL (0.83-4.51); Absolute Neutrophil Count 2.9 X10^3/uL (2.0-7.7); Basophil# 0.04 X10^3/uL; Basophil% 0.9 % (0-1); Eosinophils% 2.2 % (0-5); Hematocrit 41.1 % (40-54); Lymphocyte # 1.08 X10^3/ul (0.83-4.51); Lymphocyte % 23.8 % (19-41); Mean Corp Hgb Conc 34.1 g/dL (32-36); Mean Corpuscular Hgb 30.4 pg (27.0-32.0); Mean Corpuscular Volume 89.3 fL (80-94); Mean Platelet Vol. 9.7 fl (6.2-12.0); Monocyte# 0.41 X10^3/uL; NRBC Flagged by Analyzer 0 % (0-5); Neutrophil # 2.89 X10^3/uL (2.7-7.7); Neutrophil % 63.7 % (47-70); Platelet Count 180 K/mm3 (150-450); RBC Distribution Width CV 12.4 % (11.6-14.6); RBC Distribution Width SD 40.7 fl (35.1-43.9); White Blood Count 4.5 K/mm3 (4.4-11.0)
[2023-01-06 08:46] LABS: ALB/GLOB Ratio 1.1 RATIO (0.9-2.4); AST(SGOT) 25 U/L (15-37); Alanine Aminotransfer ALT/SGPT 34 U/L (16-61); Albumin, Serum 3.9 g/dL (3.2-5.0); Alkaline Phosphatase 51 U/L (45-117); Anion Gap 3 (5-15); BUN 23 mg/dL (7-18); Calcium,Total 9.4 mg/dL (8.5-10.1); Chloride 104 mmol/L (98-107); Creatinine, Serum 1.35 mg/dL (0.70-1.30); EST Glomerular Filtration Rate 57 mL/min (>60); Est Glom Filt Rate - Afr Amer 68 mL/min (>60); Globulin 3.4 g/dL (2.2-4.2); Glucose 105 mg/dL (74-106); Potassium 3.9 mmol/L (3.5-5.1); Protein, Total 7.3 g/dL (6.4-8.2); Sodium Level 136 mmol/L (136-145); Thyroid Stim Hormone (TSH) 1.76 uIU/mL (0.358-3.74); Vitamin B12 314 pg/mL (211-911); Vitamin D,25 Hydroxy 90.5 ng/mL
== END | disposition home or self-care (01) ==
LOC: LAB 07:21
PROVIDERS: PCP Family Medicine; Referring Provider Family Medicine; Visit Provider Family Medicine
DX: R53.83 Other fatigue (principal)
CPT/HCPCS: 36415; 80053; 82306; 82533; 82607; 84403; 84443; 85025; 85652

== ENCOUNTER → 2023-11-22 | Outpatient (CLI) | payer OTHER, SELFPAY ==
[2023-11-22 10:01] LABS: Anion Gap 5 (5-15); BUN 18 mg/dL (7-18); BUN/Creat Ratio 13.5 RATIO (10-20); Calcium,Total 9.2 mg/dL (8.5-10.1); Chloride 108 mmol/L (98-107); Cholesterol 226 mg/dL (200); Creatinine, Serum 1.33 mg/dL (0.70-1.30); EST Glomerular Filtration Rate 57 mL/min (>60); Est Glom Filt Rate - Afr Amer 69 mL/min (>60); Glucose 104 mg/dL (74-106); High Density Lipoprotein 38 mg/dL; PSA,Total - Annual Screen 0.83 ng/mL (0.00-4.00); Potassium 4.1 mmol/L (3.5-5.1); Sodium Level 141 mmol/L (136-145); Triglycerides 226 mg/dL; Very Low Density Lipoprotein 45 mg/dL (5-40)
[2023-11-22 10:02] LABS: Vitamin B12 303 pg/mL (211-911)
--- OUTSIDE RECORDS SUMMARY | 2023-11-22 20:32 | XMS RPT_ITS | CCD ---
Author Name Unknown Address [address] [place] [address] Organization [facility] Results Test Name Value Interpretation Reference Range Facil ity Summary Purpose Family History No Family History Records Found Advance Directives No Advanced Directives Records Found Additional Source Comments (unrecognized sect ion and content) No Status Records Found INFORMATION SOURCE (unrecogn ized section and content) FOR RECORDS PERTAINING TO PATIENTS WHO ARE OR HAVE BEEN ENROLLED IN A CHEMICAL DEPENDENCY/SUBSTANCEABUSE PROGRAM, SOME INFORMATION MAY BE OMITTED. This clinical summary was aggregated from multiple sources. Caution should be exercised in using it in the provision of clinical care. This summary normalizes information from multiple sources, and as a consequence, information in this document may materially change the coding, format and clinical context of patient data. In addition, data may be omitted in some cases. CLINICAL DECISIONS SHOULD BE BASED ON THE PRIMARY CLINICAL RECORDS. [employer] provides no warranty or guarantee of the accuracy or completeness of information in this document.
== END | disposition home or self-care (01) ==
LOC: LAB 09:02
PROVIDERS: PCP Family Medicine; Referring Provider Family Medicine; Visit Provider Family Medicine
DX: N28.9 Disorder of kidney and ureter, unspecified (principal); E53.8 Deficiency of other specified B group vitamins; E78.5 Hyperlipidemia, unspecified; N40.0 Benign prostatic hyperplasia without lower urinary tract symptoms; Z13.1 Encounter for screening for diabetes mellitus
CPT/HCPCS: 36415; 80048; 80061; 82607; 84153; 84403; G0103

== ENCOUNTER → 2024-12-24 | Outpatient (CLI) | payer MEDICARE, BC, SELFPAY ==
[2024-12-24 07:36] LABS: Hematocrit 38.6 % (40-54); Hemoglobin 13.2 g/dL (13.0-16.5); Mean Corp Hgb Conc 34.2 g/dL (32-36); Mean Corpuscular Hgb 29.4 pg (27.0-32.0); Mean Platelet Vol. 9.4 fl (6.2-12.0); Platelet Count 181 K/mm3 (150-450); RBC Distribution Width CV 12.5 % (11.6-14.6); RBC Distribution Width SD 39.3 fl (35.1-43.9); Red Blood Count 4.49 M/mm3 (4.6-6.2); White Blood Count 5.4 K/mm3 (4.4-11.0)
--- NOTE | 2024-12-24 07:47 | RAD_ITS ---
PROCEDURE: LUMBAR SPINE 2 OR 3 VIEWS 12/24/2024 REASON FOR EXAM: RADICULOPATHY, LUMBOSACRAL REGION TECHNIQUE: 2 view(s) of the lumbar spine FINDINGS: Vertebrae: Normal height Discs: Multilevel moderately pronounced loss of disc height Alignment: Normal lumbar lordosis Other: RAD/Lumbar Spine 2 or 3 Views IMPRESSION: Multilevel degenerative disc disease [facility]
[2024-12-24 08:34] LABS: ALB/GLOB Ratio 1.7 RATIO (0.9-2.4); AST(SGOT) 37 U/L (<=37); Alanine Aminotransfer ALT/SGPT 37 U/L (<=46); Albumin, Serum 4.1 g/dL (3.4-4.8); Alkaline Phosphatase 45 U/L (40-129); Anion Gap 12 (5-15); BUN 20 mg/dL (4-19); BUN/Creat Ratio 17.7 RATIO (10-20); Carbon Dioxide 22.3 mmol/L (21.0-32.0); Chloride 104 mmol/L (98-108); Cholesterol 209 mg/dL (<=200); Creatinine, Serum 1.13 mg/dL (0.70-1.20); EST Glomerular Filtration Rate 72 (>60); Globulin 2.5 g/dL (2.2-4.2); Glucose 110 mg/dL (70-99); High Density Lipoprotein 39 mg/dL; Low Density Lipoprotein Calc. 124 mg/dL; PSA,Total - Annual Screen 0.72 ng/mL (0.02-4.00); Potassium 3.9 mmol/L (3.3-5.1); Protein, Total 6.6 g/dL (5.9-8.4); Sodium Level 138 mmol/L (133-145); Total Bilirubin 0.84 mg/dL (0.00-1.30); Triglycerides 235 mg/dL; Very Low Density Lipoprotein 47 mg/dL (5-40); Vitamin B12 272 pg/mL (180-914); Vitamin D,25 Hydroxy 98.7 ng/mL (30-100); cholesterol:hdl ratio screen 5.43
== END | disposition home or self-care (01) ==
PROVIDERS: PCP Family Medicine; Referring Provider Family Medicine; Visit Provider Family Medicine
DX: M54.17 Radiculopathy, lumbosacral region (principal); E78.5 Hyperlipidemia, unspecified; N40.0 Benign prostatic hyperplasia without lower urinary tract symptoms; E83.119 Hemochromatosis, unspecified; E55.9 Vitamin D deficiency, unspecified
CPT/HCPCS: 72100; 80053; 80061; 82306; 82607; 84153; 85027; G0103

== ENCOUNTER → 2025-01-03 | Outpatient (CLI) | payer MEDICARE, BC, SELFPAY ==
--- NOTE | 2025-01-03 07:51 | AAAS_ITS ---
Reason For Study Reason For Study: Screening Aorta Measurements Aorta Doppler Measurements Proximal aorta measures2.38 x 2.23cm. in cross-sectional Peak systolic flow velocities within the proximal aorta axis. measure 82.2 cm/sec. Proximal aorta measures2.32cm. in longitudinal axis. Peak systolic flow velocities within the mid aorta measure Mid aorta measures1.91 x 1.87cm. in cross-sectional axis. 76.8 cm/sec. Mid aorta measures1.91cm. in longitudinal axis. Peak systolic flow velocities within the distal aorta Distal aorta measures1.71 x 1.71cm. in cross-sectional axis.measure 88.3 cm/sec. Distal aorta measures1.73cm. in longitudinal axis. Left Iliac Artery Left iliac artery measures 1.13 x 1.13 cm. in the cross-sectional axis. Left iliac artery measures 1.29 cm. in the longitudinal axis. Peak systolic velocity in the left iliac artery measures 80.1 cm/sec. Right Iliac Artery Right iliac artery measures 1.16 x 1.16 cm. in the cross-sectional axis. Right iliac artery measures 1.16 cm. in the longitudinal axis. Peak systolic velocity in the right iliac artery measures 126.7 cm/sec. Procedure Aorta IVC Iliac vasculature or bypass grafts 37529. Exam performed in department. VL/AAA Screening Interpretation Summary The dimensions of the intra-abdominal aorta are normal, without evidence of ane urysmal dilatation. The iliac arteries are also normal in caliber bilaterally. The intra-abdominal aorta and iliac art eries appear patent, demonstrating normal, pulsatile arterial flow and normal peak systolic velocities. Ordering Physician: Dallas Corado Referring Physician: Dallas Corado Performed By: Bambi Cortez RVT
== END | disposition home or self-care (01) ==
LOC: CVS 07:50
PROVIDERS: PCP Family Medicine; Referring Provider Family Medicine; Visit Provider Family Medicine
DX: Z13.6 Encounter for screening for cardiovascular disorders (principal)
CPT/HCPCS: 76706